=== PATIENT | male | born 1960 | race African-American/Black ===

== ENCOUNTER 2018-04-21 16:04 | Emergency (ER) | payer OTHER ==
[~2018-04-21] VITALS: Ht 170.2 cm; Wt 83.5 kg
[~2018-04-21 16:04] MED LIST: FLOMAX0.4 MG PO
[2018-04-21] MEDS ORDERED: COZAAR 25 MG TA25 M1 PO (16:18)
[2018-04-21] MEDS ORDERED: NORCO 5-325 TA1 EACH PO (17:26)
[2018-04-21] MEDS ORDERED: BACTRIM DS TAB1 EACH PO (17:26)
== END 2018-04-21 17:56 | disposition home or self-care (01) ==
LOC: ER 16:04
DX: L02.01 Cutaneous abscess of face (principal)

== ENCOUNTER 2020-08-12 22:33 | Emergency (ER) | payer OTHER ==
[~2020-08-12] VITALS: Ht 167.6 cm; Wt 81.7 kg
[~2020-08-12 22:33] MED LIST changes: +BACTRIM DS TAB1 EACH PO; +COZAAR 25 MG TA25 M1 PO; +NORCO 5-325 TA1 EACH PO
[2020-08-12] MEDS ORDERED: METOPROLOL SUCC25 M1 PO (22:52)
[2020-08-12] MEDS ORDERED: LIPITOR 40 MG T40 M1 PO (22:52)
[2020-08-12 23:35] LABS: ANION GAP 11 mmol/L (7-16); BUN 23 mg/dL (7-18); CALCIUM 8.7 mg/dL (8.5-10.1); CHLORIDE 101 mmol/L (98-107); CO2 24 mmol/L (21-32); GLUCOSE 120 mg/dL (74-106); POTASSIUM 3.7 mmol/L (3.5-5.1); SODIUM 136 mmol/L (136-145)
[2020-08-12 23:40] LABS: ABSOLUTE NEUTROPHILS 3.1 thou/uL (1.4-8.2); BASOPHILS 0.5 % (0.0-2.0); EOSINOPHILS 0.4 % (0.0-3.0); HEMATOCRIT 39.9 % (42.0-52.0); HEMOGLOBIN 13.4 gm/dL (14.0-18.0); LYMPHOCYTES 12.6 % (24.0-44.0); MCH 27.9 pg (26.0-34.0); MCHC 33.6 g/dL (28.0-37.0); MCV 83.2 fL (80.0-100.0); MONOCYTES 5.6 % (1.0-8.0); PLATELET COUNT 169 thou/uL (150-400); POLYS 80.9 % (36.0-66.0); RBC 4.79 mil/uL (4.50-6.00); RDW 14.7 % (10.5-14.5); WBC 3.8 thou/uL (4.0-11.0)
[2020-08-12 23:44] LABS: TROPONIN-I <0.06 ng/mL (<0.06)
[2020-08-13] MEDS ORDERED: PREDNISONE 10 M10 MG PO (04:19)
[2020-08-13] MEDS ORDERED: ZITHROMAX250 MG PO (04:19)
[2020-08-13 04:38] VITALS: BP 155/101
--- NOTE | 2020-08-13 07:44 | EKG ---
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 BARKER : 1960 Requested By: Shereen Galeana Order Number: [id number] MD: Hemant Hector Measurements Intervals [place] Rate: 90 P: 32 TN: 149 QRS: -161 QRSD: 120 T: 4 QT: 371 QTc: 454 Interpretive Statements Sinus rhythm IRBBB and LPFB Compared to ECG 05/19/2017 22:36:51 Incomplete right bundle-branch block now present T-wave abnormality no longer present Electronically Signed On 08-13-2020 7:44:44 [employer] by Hemant Hector [email or web address] <ELECTRONICALLY SIGNED> By: Hemant Hector MD, [facility] 08/13/20 0744 D: [id number] Hemant Hector MD, FACC /EPI
== END 2020-08-13 04:43 | disposition home or self-care (01) ==
LOC: ER 22:33
PROVIDERS: Emergency Medicine
DX: U07.1 COVID-19 (principal); T67.1XXA Heat syncope, initial encounter; Z79.899 Other long term (current) drug therapy; X58.XXXA Exposure to other specified factors, initial encounter; Y93.89 Activity, other specified; Y92.89 Other specified places as the place of occurrence of the external cause; Y99.8 Other external cause status